=== PATIENT | male | born 1985 | race Caucasian/White ===

== ENCOUNTER 2021-03-27 14:33 | Emergency (ER) | payer SELFPAY ==
[~2021-03-27] VITALS: Ht 157.5 cm; Wt 78.2 kg
[~2021-03-27 14:33] MED LIST: AMOXICILLIN 8751 TAB PO; CIPRO 500MG TA500 MG PO; FLAGYL500 MG PO; NORCO 325 MG-51 TAB PO; PHENERGAN 25 TA25 MG PO
[2021-03-27 14:42] VITALS: PULSE 83; TEMP 98.5
[2021-03-27 15:18] VITALS: BP 137/80
== END 2021-03-27 15:24 | disposition home or self-care (01) ==
LOC: COL.ER 14:33
DX: S61.210A Laceration without foreign body of right index finger without damage to nail, initial encounter (principal); W26.0XXA Contact with knife, initial encounter

== ENCOUNTER 2021-12-11 00:51 | Emergency (ER) | payer SELFPAY ==
[~2021-12-11] VITALS: Wt 81.8 kg
[2021-12-11 01:31] LABS: BASO % 0.4 % (0.0-2.0); EOS % 0.4 % (0.0-4.0); GRAN # 7.2 K/mm3 (1.4-6.5); GRAN % 87.9 % (42.2-75.2); HEMATOCRIT 43.7 % (42.0-52.0); HEMOGLOBIN 15.4 g/dl (13.5-18.0); LYMPH # 0.6 K/mm3 (1.2-3.4); LYMPH % 7.1 % (20.0-51.0); MEAN CELL VOLUME 83 fl (80.0-100.0); MEAN CORPUSCULAR HEMOGLOBIN 29 pg (27-31); MEAN CORPUSCULAR HGB CONC 35 g/dl (33.0-37.0); MEAN PLATELET VOLUME 11.5 fl (7.4-10.4); MONO # 0.3 K/mm3 (0.1-0.6); PLATELET COUNT 161 K/mm3 (130-400); RED BLOOD COUNT 5.28 M/mm3 (4.20-5.60); REDCELL DISTRIBUTION WIDTH-CV 12.5 % (11.5-14.5)
[2021-12-11 01:47] LABS: ALBUMIN 4.5 gm/dL (3.5-5.0); BILIRUBIN,TOTAL 0.7 mg/dL (0.2-1.2); CALCIUM 9.2 mg/dL (8.4-10.2); CREATININE, serum 0.93 mg/dL (0.72-1.25); POTASSIUM 3.9 mmol/L (3.5-4.5)
[2021-12-11 02:50] VITALS: TEMP 99.3
[2021-12-11 02:59] VITALS: BP 109/64; PULSE 102
== END 2021-12-11 02:59 | disposition home or self-care (01) ==
LOC: COL.ER 00:51
PROVIDERS: Physician Assistant
DX: B34.9 Viral infection, unspecified (principal); R00.0 Tachycardia, unspecified; Z20.822 Contact with and (suspected) exposure to COVID-19
CPT/HCPCS: J2405; J7030